=== PATIENT | female | born 1970 | race Two or more races ===

== ENCOUNTER 2021-10-07 15:41 | Emergency (ER) | payer OTHER ==
[~2021-10-07] VITALS: Ht 162.6 cm; Wt 63.6 kg
[2021-10-07] MEDS ORDERED: FAMO20 PO (15:58)
[2021-10-07] MEDS ORDERED: LEVO2.5S7 PO (15:58)
[2021-10-07] MEDS ORDERED: HYDR-3831 PO (15:58)
[2021-10-07 16:59] LABS: APPEARANCE,URINE CLEAR (CLEAR); BASOPHILS % (AUTO) 1.2 % (0.0-2.0); BILIRUBIN,URINE NEGATIVE (NEGATIVE); EOSINOPHILS % (AUTO) 6.6 % (1.0-6.0); GLUCOSE, URINE (UA) NEGATIVE (NEGATIVE); HEMATOCRIT 39.1 % (36-46); HEMOGLOBIN 13.6 g/dL (12.0-16.0); KETONES,URINE NEGATIVE (NEGATIVE); LEUKOCYTE ESTERASE ,URINE NEGATIVE (NEGATIVE); LYMPHOCYTES # (AUTO) 1.9 K/uL (1.0-4.8); LYMPHOCYTES % (AUTO) 32.4 % (22.0-44.0); MEAN CORPUSCULAR HEMOGLOBIN 32.6 pg (26.0-34.0); MEAN CORPUSCULAR HGB CONC 34.8 G/dL (31.0-37.0); MEAN CORPUSCULAR VOLUME 94 fL (80-100); MONOCYTES # (AUTO) 0.4 K/uL (0.1-1.0); MONOCYTES % (AUTO) 7.7 % (2.0-9.0); NEUTROPHILS % (AUTO) 52.1 % (40.0-70.0); NITRATE,URINE NEGATIVE (NEGATIVE); OCCULT BLOOD,URINE NEGATIVE (NEGATIVE); PLATELET COUNT (AUTO) 309 K/uL (150-450); PROTEIN,URINE NEGATIVE (NEGATIVE); RED BLOOD CELL COUNT(AUTO) 4.17 MIL/uL (4.00-5.20); RED CELL DISTRIBUTION WIDTH 12.5 % (11.5-14.5); SPECIFIC GRAVITIY, URINE 1.004 (1.003-1.030); UROBILINOGEN,URINE <=1.0 mg/dL (<=1.0)
[2021-10-07 17:11] LABS: PROTHROMBIN TIME 10.9 SEC (9.4-11.6)
[2021-10-07 17:14] LABS: ANION GAP 9 mmol/L (8-16); CARBON DIOXIDE 31 mmol/L (22-29); CHLORIDE 100 mmol/L (98-107); CREATININE 0.76 mg/dL (0.60-1.30); GLUCOSE,RANDOM 110 mg/dL (70-110); POTASSIUM 3.6 mmol/L (3.5-5.1); SODIUM SERUM 140 mmol/L (136-145); UREA NITROGEN, BLOOD 11 mg/dL (7-18)
[2021-10-07 17:16] LABS: GLOMERULAR FILTR. RATE CALC > 60 mL/min (>60)
[2021-10-07 17:21] LABS: ALANINE AMINOTRANSFERASE 31 U/L (12-78); ALBUMIN 4.3 g/dL (3.4-5.0); ALKALINE PHOSPHATASE 42 U/L (46-116); ASPARTATE AMINOTRANSFERASE 15 U/L (15-37); BILIRUBIN,TOTAL 0.3 mg/dL (0.1-1.0); CREATINE KINASE, TOTAL ONLY 70 U/L (26-192); TOTAL PROTEIN, SERUM 7.2 g/dL (6.4-8.2)
[2021-10-07 17:25] LABS: B-TYPE NATRIURETIC PEPTIDE 21 pg/mL (0-100)
[2021-10-07 19:24] VITALS: BP 150/82
== END 2021-10-07 19:32 | disposition home or self-care (01) ==
LOC: EMS 15:44
DX: R07.89 Other chest pain (principal); I10 Essential (primary) hypertension
CPT/HCPCS: 71045; 80053; 81003; 82550; 83880; 84484; 85025; 85610; 85730; 93005; 99285; 36415-L1; 36415-TC